=== PATIENT | female | born 1945 | race Caucasian/White ===

== ENCOUNTER 2018-11-07 22:48 | Emergency (ER) | payer MEDICARE, OTHER ==
--- NOTE | 2018-11-08 00:39 | ER ---
REASON FOR EMERGENCY ROOM VISIT: Postop, feeling funny. HISTORY OF PRESENT ILLNESS: This 73-year-old woman with a history of hypertension, underwent a right-sided carotid endarterectomy 4 days ago. This was performed by Dr. Miller at [facility] in [place]. Postoperatively, she apparently did have a bout of atrial fibrillation, which was transient. She does have a history of hypertension, but has no prior history of cardiac disease. She was discharged on Tuesday with an uneventful stay in the hospital at the time apart from the atrial fib. She states since then she has felt "fuzzy" and has some increasing numbness around the incision of her endarterectomy scar such that the numbness seems to be experienced more up along her right cheek area. In addition to this, her blood pressure has been quite labile at home going into the 200 over 90s range. For this reason, she doubled up on her dose of metoprolol. She has not had any weakness, numbness, or visual symptoms. She has not had any periods of slurred speech or aphasia. PAST MEDICAL HISTORY: 1. Significant for hypothyroidism. 2. Carotid stenosis as mentioned above. 3. Hypothyroidism. 4. Hyperlipidemia. CURRENT MEDICATIONS: Include rosuvastatin 10 mg p.o. daily, 1 baby aspirin p.o. daily, metoprolol tartrate 12.5 mg p.o. b.i.d., Synthroid 88 mcg p.o. daily, and lisinopril 20 mg p.o. daily. ALLERGIES: None to medications. REVIEW OF SYSTEMS: Pertinent positives and negatives as noted in the HPI. PHYSICAL EXAMINATION: VITAL SIGNS: On admission, her blood pressure was 200/93, but subsequent determinations were in the 140s to 150s systolic over 80s to 90s. Heart rate was 67. She is afebrile. Respirations 16, O2 sats 100%. HEENT: Head is normocephalic. Pupils equally round and reactive to light. Oropharynx is normal. NECK: She has a right carotid endarterectomy scar that is clean and healing nicely. There is no bruit on either side. CHEST: Clear to auscultation. CARDIAC: Regular rate without murmur. NEUROLOGIC: On assessment of cranial nerves, she definitely has a left lower facial muscle weakness compared to the right side that is obvious. Her tongue is midline. Muscle strength, bulk, and tone are normal and symmetrical in both upper and lower extremities. Deep tendon reflexes in the upper and lower extremities are normal and symmetrical. Sensation is normal to crude touch. She does have some nadya-incisional numbness that extends up along the angle of mandible and around the incision, which is not surprising. IMPRESSION: 1. Definite left lower facial muscle weakness, postop carotid endarterectomy. 2. Labile blood pressure, possibly inadequately controlled. PLAN: I do not think we can ignore the facial muscle weakness at this point in time. When I asked the patient about it, she admitted that she noticed that there was an asymmetry to her face on the left side which was something new for her. She failed to mention it to me when she was first being interviewed, but once I brought it to her attention, she did admit she noticed this this morning. Because of this, I spoke to the emergency room physician at [facility] in [place], who agreed that she should probably be seen and have her carotid scan this evening. I do not have an extremely high index of suspicion that anything is going on, but we need to get this evaluated. He agrees. I discussed this with the patient and her . They feel comfortable driving to [place] and they recognize of course the inherent risks of venturing out on the roads at this time of night. I do not think an ambulance is necessary. They agree, they understand, and all questions were answered. MILLI /[id number]
== END 2018-11-07 23:55 ==
LOC: JD.ED 22:48
DX: M62.81 Muscle weakness (generalized) (principal); I10 Essential (primary) hypertension; E03.9 Hypothyroidism, unspecified; E78.5 Hyperlipidemia, unspecified; Z79.899 Other long term (current) drug therapy
CPT/HCPCS: 99284

== ENCOUNTER 2022-06-24 09:34 | Emergency (ER) | payer MEDICARE, OTHER | END 2022-06-24 12:50 | disposition home or self-care (01) | LOC: JD.ED 09:34 | DX: R42 Dizziness and giddiness (principal); R00.1 Bradycardia, unspecified; I10 Essential (primary) hypertension; Z79.899 Other long term (current) drug therapy; Z79.82 Long term (current) use of aspirin | CPT/HCPCS: 36415; 80053; 84443; 84484; 85025; 93005; 93010; 99284 ==